=== PATIENT | female | born 1970 | race Caucasian/White ===

== ENCOUNTER 2019-07-01 16:43 | Emergency (ER) | payer OTHER ==
[~2019-07-01] VITALS: Ht 162.6 cm; Wt 54.4 kg
[~2019-07-01 16:43] MED LIST: FLA500 PO; IBUPROFEN IB200 MG PO; MAC100 PO
[2019-07-01 17:19] VITALS: Ht 162.6 cm; Wt 54.4 kg
[2019-07-01 21:15] VITALS: BP 155/98
== END 2019-07-01 21:15 | disposition home or self-care (01) ==
LOC: ED 16:43
DX: H10.31 Unspecified acute conjunctivitis, right eye (principal); M54.42 Lumbago with sciatica, left side
CPT/HCPCS: J1885